=== PATIENT | male | born 1990 | race Caucasian/White ===

== ENCOUNTER 2017-07-28 16:14 | Emergency (ER) | payer OTHER ==
[~2017-07-28] VITALS: Ht 172.7 cm; Wt 66.8 kg
[2017-07-28 16:27] VITALS: TEMP 36.6; Ht 172.7 cm; Wt 66.8 kg
[2017-07-28 16:28] VITALS: O2SAT 98
[2017-07-28] MEDS ORDERED: GLUCAGON FOR INJ 1 MG VIAL IV STA (16:31)
[2017-07-28] MEDS ORDERED: METOCLOPRAMIDE HCL INJ 5 MG/ML 2 ML VIAL IV STA (16:39)
[2017-07-28 16:44] LABS: BASO % 0.3 %; BASO ABS # 0.02 K/uL (0-0.2); EOS % 1.9 %; EOS ABS # 0.13 K/uL (0-0.5); HEMATOCRIT 43.9 % (42-52); HEMOGLOBIN 16.3 g/dL (14.0-18.0); IG# 0.01 K/uL (0.00-0.02); LYMPH % 15.4 %; LYMPH ABS # 1.08 K/uL (1.2-3.4); MEAN CELL VOLUME 84.3 fL (80-100); MEAN CORPUSCULAR HEMOGLOBIN 31.3 pg (25-34); MEAN CORPUSCULAR HGB CONC 37.1 g/dl (32-36); MEAN PLATELET VOLUME 10.6 fL (7.4-10.4); MONO % 6.1 %; MONO ABS # 0.43 K/uL (0.11-0.59); NEUT % 76.2 %; NEUT ABS # 5.33 K/uL (1.4-6.5); PLATELET COUNT 190 K/uL (130-400); RED CELL DISTRIBUTION WIDTH CV 12.1 % (11.5-14.5); RED CELL DISTRIBUTION WIDTH SD 37.2 fL (36.4-46.3)
[2017-07-28 17:11] LABS: CREATININE 1.27 mg/dl (0.60-1.40); POTASSIUM 3.3 mmol/L (3.5-5.1)
--- NOTE | 2017-07-28 17:12 | DIAGNOSTIC IMAGING REPORT ---
CHEST ONE VIEW PORTABLE HISTORY: 27 years-old Male eval for FB food bolus with concern for foreign body. Acute difficulty swallowing. COMPARISON: None available TECHNIQUE: Portable AP view of the chest FINDINGS: Cardiomediastinal and hilar silhouettes are within normal limits. No pneumothorax, pleural effusion, focal airspace consolidation or overt pulmonary edema. Bones of the chest appear grossly intact. No opaque foreign body. IMPRESSION: 1. No acute process of the chest. 2. No opaque foreign body. The above report was generated using voice recognition software. It may contain grammatical, syntax or spelling errors. Electronically signed by: Abel Bradshaw M.D. 07/28/2017 5:11 PM Dictated Date/Time: 07/28/2017 5:10 PM
[2017-07-28 17:50] VITALS: BP 118/76; PULSE 87; O2SAT 98
--- NOTE | 2017-07-28 19:06 | EMERGENCY ROOM VISIT NOTE ---
History Report prepared by Zulema: Eddie Simon Under the Supervision of: Dr. Jose Rahman M.D. First contact with patient: 16:26 Chief Complaint: FOOD BOLUS Stated Complaint: FOOD STUCK IN THROAT,CAN'T SWOLLOW LIQUIDS History of Present Illness The patient is a 27 year old male who presents to the Emergency Room with complaints of a sudden esophageal impaction occurring prior to arrival. The patient states that he was eating chicken wings, and he states that it feels like it did not go all the way down while swallowing. He denies swallowing a bone. He states that he states that at first he was spitting out a lot of saliva, though he states that he feels like he may be able to swallow his saliva now. He denies any trouble breathing. The patient states that he tried to drink soda to help, with no relief. He states that he has a history of eosinophilic esophagitis, and he is not normally hypertensive. Source of History: patient Onset: prior to arrival Position: other (esophagus) Quality: other (food impaction) Timing: other (sudden) Associated Symptoms: No SOB Note: Associated symptoms: Spitting up saliva. Review of Systems See HPI for pertinent positives & negatives. A total of 10 systems reviewed and were otherwise negative. Past Medical & Surgical Medical Problems: (1) Eosinophilic esophagitis Social History Smoking Status: Never Smoker Marital Status: single Housing Status: lives with roommate Occupation Status: employed Current/Historical Medications No Active Prescriptions or Reported Meds Allergies Coded Allergies: Egg (Unverified Allergy, Mild, RASH, 07/28/17) Fruit Extracts (Unverified Allergy, Mild, RASH, 07/28/17) Physical Exam Vital Signs Date Time Temp Pulse Resp B/P (MAP) Pulse Ox O2 Delivery O2 Flow Rate FiO2 07/28/17 17:50 87 18 118/76 98 Room Air 07/28/17 16:28 98 Room Air 98 07/28/17 16:27 36.6 110 18 147/96 98 Room Air Physical Exam Constitutional: Vital signs reviewed. Eyes: Pupils are equal round reactive to light. Conjunctiva are noninjected. ENT: Pharynx is clear without erythema or exudate. Mucous membranes are moist. Neck supple without meningeal signs. Respiratory: Clear to auscultation bilaterally. Breath sounds are equal bilaterally. No stridor or wheezing. Cardiovascular: Regular rate and rhythm. No rubs or gallops. GI: Soft, nondistended and nontender. Bowel sounds are present. Musculoskeletal: No peripheral edema. No lower extremity tenderness. Integumentary: No cyanosis. Neurological: The patient is awake and alert. No focal deficits. Psychiatric: Normal affect. Medical Decision & Procedures ER Provider Diagnostic Interpretation: Radiology results as stated below per my review and the radiologist's interpretation: CHEST ONE VIEW PORTABLE HISTORY: 27 years-old Male eval for FB food bolus with concern for foreign body. Acute difficulty swallowing. COMPARISON: None available TECHNIQUE: Portable AP view of the chest FINDINGS: Cardiomediastinal and hilar silhouettes are within normal limits. No pneumothorax, pleural effusion, focal airspace consolidation or overt pulmonary edema. Bones of the chest appear grossly intact. No opaque foreign body. IMPRESSION: 1. No acute process of the chest. 2. No opaque foreign body. The above report was generated using voice recognition software. It may contain grammatical, syntax or spelling errors. Electronically signed by: Abel Bradshaw M.D. 07/28/2017 5:11 PM Dictated Date/Time: 07/28/2017 5:10 PM Laboratory Results 07/28/17 16:30 Red Blood Count 5.21, Mean Corpuscular Volume 84.3, Mean Corpuscular Hemoglobin 31.3, Mean Corpuscular Hemoglobin Concent 37.1, Mean Platelet Volume 10.6, Neutrophils (%) (Auto) 76.2, Lymphocytes (%) (Auto) 15.4, Monocytes (%) (Auto) 6.1, Eosinophils (%) (Auto) 1.9, Basophils (%) (Auto) 0.3, Neutrophils # (Auto) 5.33, Lymphocytes # (Auto) 1.08, Monocytes # (Auto) 0.43, Eosinophils # (Auto) 0.13, Basophils # (Auto) 0.02 07/28/17 16:30 Test 07/28/17 16:30 White Blood Count 7.00 K/uL (4.8-10.8) Red Blood Count 5.21 M/uL (4.7-6.1) Hemoglobin 16.3 g/dL (14.0-18.0) Hematocrit 43.9 % (42-52) Mean Corpuscular Volume 84.3 fL (80-100) Mean Corpuscular Hemoglobin 31.3 pg (25-34) Mean Corpuscular Hemoglobin Concent 37.1 g/dl (32-36) Platelet Count 190 K/uL (130-400) Mean Platelet Volume 10.6 fL (7.4-10.4) Neutrophils (%) (Auto) 76.2 % Lymphocytes (%) (Auto) 15.4 % Monocytes (%) (Auto) 6.1 % Eosinophils (%) (Auto) 1.9 % Basophils (%) (Auto) 0.3 % Neutrophils # (Auto) 5.33 K/uL (1.4-6.5) Lymphocytes # (Auto) 1.08 K/uL (1.2-3.4) Monocytes # (Auto) 0.43 K/uL (0.11-0.59) Eosinophils # (Auto) 0.13 K/uL (0-0.5) Basophils # (Auto) 0.02 K/uL (0-0.2) RDW Standard Deviation 37.2 fL (36.4-46.3) RDW Coefficient of Variation 12.1 % (11.5-14.5) Immature Granulocyte % (Auto) 0.1 % Immature Granulocyte # (Auto) 0.01 K/uL (0.00-0.02) Anion Gap 8.0 mmol/L (3-11) Est Creatinine Clear Calc Drug Dose 84.0 ml/min Estimated GFR () 90.4 Estimated GFR (Non- 78.0 BUN/Creatinine Ratio 12.6 (10-20) Calcium Level 9.0 mg/dl (8.5-10.1) Laboratory results as reviewed by me. Medications Administered Medications (Trade) Dose Ordered Sig/Tristen Route Start Time Stop Time Status Last Admin Dose Admin Glucagon (Glucagon Inj) 1 mg NOW STAT IV 07/28/17 16:31 07/28/17 16:34 DC 07/28/17 16:42 1 MG Metoclopramide HCl (Reglan Inj) 10 mg NOW STAT IV 07/28/17 16:39 18 16:40 DC 07/28/17 16:43 10 MG ED Course 1626: The patient was evaluated in room B3. A complete history and physical exam was performed. 1631: Glucagon 1mg IV 1639: Reglan 10mg IV 1734: I reevaluated the patient, and he is feeling much better. He was able to drink a can of Sprite without any difficulty. 1736: I discussed the patient's case with Dr. Sebastien MARISCAL, and he said that he will call the office and have them schedule an EGD for him. 1741: I updated the patient on the treatment plan, and he is going to be discharged home. Medical Decision This is a 27-year-old male who presents with difficulty swallowing. Differential diagnosis includes esophageal food bolus impaction, esophagitis, esophageal mass, GERD, esophageal ring. I did perform a limited focused review of portions of the patient's old chart on the electronic medical record. The patient has had no prior visits. I did obtain records from the [facility] system. The patient did have a EGD performed by Dr. sotomayor in February 2016. This showed eosinophilic esophagitis. He did have dilation performed at that time. He was placed on Prilosec. I did evaluate the patient as noted above. The patient has a history of eosinophilic esophagitis requiring dilation in 2015. He is presenting with what appears to be an esophageal food bolus impaction from eating chicken. IV access was established. I did order and personally review the patient's chest x -ray as described above. I did order and review the patient's blood work as noted in the electronic medical record. I did treat the patient with IV glucagon and Reglan. I did reassess the patient. He states he is feeling better and able to swallow his own saliva. He was able to drink a can of Sprite without difficulty. I did discuss case with the director of category management on- call. He will arrange for outpatient EGD. The patient was advised to stay on a pured or liquid diet until follow-up. He was discharged in good condition. Medication Reconcilliation Current Medication List: was personally reviewed by me Blood Pressure Screening Patient's blood pressure: Elevated blood pressure Blood pressure disposition: Elevated BP felt to be situational Consults Time Called: 1733 Consulting Physician: Dr. Sebastien MARISCAL Returned Call: 1736 I discussed the patient's case with Dr. Sebastien MARISCAL, and he said that he will call the office and have them schedule an EGD for him. Impression Primary Impression: Food impaction of esophagus Additional Impression: Eosinophilic esophagitis Scribe Attestation The scribe's documentation has been prepared under my direct and personally reviewed by me in its entirety. I confirm that the note above accurately reflects all work, treatment, procedures, and medical decision making performed by me. Departure Information Dispostion Home / Self-Care Prescriptions No Active Prescriptions or Reported Meds Referrals No Doctor, Assigned (PCP) Forms HOME CARE DOCUMENTATION FORM, IMPORTANT VISIT INFORMATION, WORK / SCHOOL INSTRUCTIONS Patient Instructions My [facility] Additional Instructions You have been examined and treated today on an emergency basis only. This is not a substitute for, or an effort to provide, complete comprehensive medical care. It is impossible to recognize and treat all injuries or illnesses in a single emergency department visit. It is therefore important that you follow up closely with your director of category management. He will need an outpatient EGD. If you do not hear from the office by tomorrow afternoon call them. Stay on a liquid or pured diet until follow-up. Return for worsening symptoms or if you develop fever, vomiting, chest pain, difficulty breathing or any other concerning symptoms. Problem Qualifiers Primary Impression: Food impaction of esophagus Encounter type: initial encounter Qualified Codes: T18.128A - Food in esophagus causing other injury, initial encounter
== END 2017-07-28 17:58 | disposition home or self-care (01) ==
LOC: C.EDB 16:17
DX: T18.128A Food in esophagus causing other injury, initial encounter (principal); X58.XXXA Exposure to other specified factors, initial encounter; K20.0 Eosinophilic esophagitis; Z91.012 Allergy to eggs; Z91.02 Food additives allergy status